=== PATIENT | male | born 1975 | race Caucasian/White ===

== ENCOUNTER → 2020-08-28 10:14 | Outpatient (BNVA) | payer BC, SELFPAY | PROVIDERS: PCP Internal Medicine; Visit Provider Urology ==

== ENCOUNTER → 2021-02-18 14:33 | Outpatient (BNVA) | payer BC, SELFPAY | PROVIDERS: PCP Internal Medicine; Visit Provider Urology ==

== ENCOUNTER → 2021-08-26 10:01 | Outpatient (BNVA) | payer BC, SELFPAY | PROVIDERS: PCP Internal Medicine; Visit Provider Urology ==

== ENCOUNTER → 2021-08-28 10:33 | Outpatient (BNVA) | payer BC, SELFPAY | PROVIDERS: PCP Internal Medicine; Visit Provider Urology ==

== ENCOUNTER → 2022-06-29 09:25 | Outpatient (BNVA) | payer BC, SELFPAY | PROVIDERS: PCP Internal Medicine; Visit Provider Urology | DX: N52.9 Male erectile dysfunction, unspecified (principal) ==

== ENCOUNTER 2023-01-21 13:57 | Outpatient (AMB) | payer BC, SELFPAY ==
--- NOTE | 2023-01-21 07:08 | A.OFFVIS_ITS ---
Intake Intake Visit Reasons: 6M CBC/PSA/Testo(set) Intake Note: Patient presents today for a follow-up on Erectile Dysfunction: Meds- Testosterone Cyp Allergies to Antibiotic- No Known Allergies Blood Thinner- None PSA Results- 0.9 ng/mL 12/2022 Hand Cigar Making Supervisor Required: No Accompanied by: Self / Same As Patient Allergies No Known Allergies Allergy (Verified 06/29/22 09:28) HPI HPI Comments History of Present Illness Details Alphonso is a 47-year-old male who presents today via tele-health visit for a follow up on Erectile Dysfunction. 01/21/2023? He has been followed up by Dr. Cai on 06/29/2022 for hypogonadism and erectile dysfunction. He is compliant with his medications at this time. He requests refill of his medications. He denies any other new urological issues at this time. PSA results reviewed?12/29/2022?0.9. Testosterone results reviewed ? 12/29/2022 ? 707. Plan: Will refill his medications. Follow up in 6-months with Dr. Cai. [facility] Medical History Erectile dysfunction Hypogonadism in male Testicular failure Surgical History History of surgery Family History (Updated 01/21/23 @ 14:00 by DEWEY Seymour) Father No problems noted. Mother No problems noted. Social History (Updated 01/21/23 @ 14:00 by DEWEY Seymour) Alcohol intake: current Alcohol intake frequency: does not drink Patient Tobacco Use Status: Never used Tobacco Review of Systems Const All systems reviewed & are unremarkable except as noted in HPI and below Reports no additional complaints Eyes Reports no additional complaints ENT Reports no additional complaints Card Denies dyspnea Resp Denies cough and Denies dyspnea GI Reports no additional complaints Musc Reports no additional complaints Skin/Breast Denies rash and Denies unusual bruising Neuro Reports no additional complaints Psych Reports no additional complaints Endo Reports no additional complaints Vj/Lymph Reports no additional complaints Aller/Immun Reports no additional complaints Assessment & Plan Assessment & Plan (1) Erectile dysfunction: Code(s): N52.9 - Male erectile dysfunction, unspecified (2) Hypogonadism in male: Code(s): E29.1 - Testicular hypofunction Plan Will refill his medications. Follow up in 6-months with Dr. Cai. Patient Instructions: The patient had an opportunity to ask questions regarding treatment plan. All questions were answered. Imaging, Laboratory studies and physical exam results were discussed and reviewed in detail. No major barriers to understanding were identified. The patient expressed understanding and agreement with the above treatment plan. The patient is aware they should contact our office by phone for worsening of their current condition or the appearance of new symptoms. Compliance is encouraged with any medications and followup testing that is ordered. It is a privilege to be allowed the opportunity to participate in the urologic care of your patient. If you have any questions or concerns regarding treatment for the above conditions please do not hesitate to contact me. The office telephone contact is [phone]. This note is constructed in part using voice recognition software. While every effort has been made to ensure accuracy department sales manager errors may have been included. Yours sincerely, Kirt El MD Coding Level of Care Code Est Pt Level 3 (47701)
== END 2023-01-21 16:45 | disposition home or self-care (01) ==
LOC: HO.HUSH 13:57
PROVIDERS: PCP Internal Medicine; Visit Provider Urology
DX: N52.9 Male erectile dysfunction, unspecified (principal); E29.1 Testicular hypofunction
CPT/HCPCS: 99213

== ENCOUNTER → 2023-01-21 13:57 | Outpatient (BNVA) | payer BC, SELFPAY | PROVIDERS: PCP Internal Medicine; Visit Provider Urology ==

== ENCOUNTER 2023-07-22 11:35 | Outpatient (AMB) | payer BC, SELFPAY ==
--- NOTE | 2023-07-22 11:39 | A.OFFVIS_ITS ---
Intake Intake Visit Reasons: 6 months Labs(SET) Intake Note: Patient is Present for Telephone Follow Up Urology Med: Testosterone Antibiotic Allergy: None Blood Thinner: None Allergies No Known Allergies Allergy (Verified 06/29/22 09:28) Medication List - Last Reconciled 07/22/23 by Daniel Cai MD insulin syringe-needle U-100 As directed two times per week meloxicam 15 mg PO DAILY testosterone cypionate inject 0.4 mls subcutaneous two times a week 28 days HPI HPI Comments History of Present Illness Details Alphonso Fuller is a very pleasant male. He is a patient of Dr Grimes. He is seen for the following urologic conditions - hypogonadism Telephone evaluation 15 minutes spent in discussion and docum entation Doximity adrienne Video Testosterone continues to maintain stability 465, PSA 0.9 Continue with testosterone 0.4 cc subcutaneous 2 times a week Hypogonadism: Prescriptions 0.4 cc subcutaneous 2 times a week Injection Day: Tue - Lab Work: Tuesday Initial symptoms include erectile dysfunction No decreased libido Yes change in mood/depression No in muscle size/strength Yes increased fatigue/malaise Yes increased abdominal fat No tender breasts/gynecomastia No hair loss No osteopenia No The onset of symptoms has been gradual, since late 2014 - trial of Clomid January 2016 with T response to 460 - not covered under insurance - trial of hCG - up to 1000u 3x a week - repeat T 169 05/19 - 05/19 - trial of T 50mcg 2x a week with hcg 250u 2x a week the day prior. Erectile status nocturnal erections occur and are comparable to sexual stimulation, erections are adequate for penetration, erections are maintained until ejaculation. Associate conditions include obstructive sleep apnea No CAD No obesity No stress - financial, family, employment No heavy alcohol or illicit drug use No other external testosterone use Laboratory results baseline, December 2015 - testosterone 208, , calculated bioavailable testosterone 122 January 2016 - trial of clomid restart - testosterone 425 calculated bioavailable testosterone 241 May 19 - T 164 , LH 3.04 Aug 2016 T 485 Feb 2017 757 - end, , PSA 1.1 06/19 T 1087 01/18 T 648, 12/20 T 494, PSA 0.9, HCT 50, 06/21 T 899 PSA 0.9 HCT 52, 12/21 T 585 PSA 0.9 HCT 51, 07/24 T 390 PSA 0.8 HCT 50, 02/21 T 566 PSA 0.7, Hct 49, 09/22 624 0.9 50, 06/24 T 902 0.9 52, 06/25 T 465 0.9 Current therapy includes injectable exogenous testosterone Diagnosis based on history and laboratory results Primary testicular failure, secondary to, external medications/substances. non responsive to hCG. Therapeutic plan continue current medication 0.40 ml 2x a week Risk, benefits and alternatives to therapy were discussed regarding the use and timing of prescribed medications. Pertinent side effects and interactions for medications were highlighted and adherence emphasized [facility] Medical History Erectile dysfunction Hypogonadism in male Testicular failure Surgical History History of surgery Family History (Updated 01/21/23 @ 14:00 by DEWEY Seymour) Father No problems noted. Mother No problems noted. Social History (Updated 01/21/23 @ 14:00 by DEWEY Seymour) Alcohol intake: current Alcohol intake frequency: does not drink Patient Tobacco Use Status: Never used Tobacco Review of Systems Const All systems reviewed & are unremarkable except as noted in HPI and below Reports no additional complaints Resp Reports no additional complaints GI Reports no additional complaints Reports as per HPI Musc Reports no additional complaints Physical Exam Telemedicine evaluation Appropriate responses Regular breathing rate and rhythm HEENT Head: Yes normal to inspection Ears: hearing grossly normal bilaterally Eyes General: appearance normal, both eyes and all related structures Neck Neck: Yes normal visual inspection Chest Chest palpation & inspection: normal inspection of the chest Resp Effort & Inspection: normal respiratory effort and able to speak in complete sentences Assessment & Plan Assessment & Plan (1) Erectile dysfunction: Code(s): N52.9 - Male erectile dysfunction, unspecified (2) Hypogonadism in male: Code(s): E29.1 - Testicular hypofunction Plan Six-month follow-up labs Orders: Orders Prostate Specific Antigen 6 Months E29.1 - Testicular hypofunction Testosterone, Total 6 Months E29.1 - Testicular hypofunction Complete Blood Count no Diff 6 Months E29.1 - Testicular hypofunction Medications: Refilled testosterone cypionate inject 0.4 mls subcutaneous two times a week 28 days 8 mL 5RF E29.1 - Testicular hypofunction Patient Instructions: Imaging studies, laboratory and physical exam results were discussed and reviewed in detail. No major barriers to patient understanding were identified. An opportunity to ask questions regarding the treatment plan was provided. All questions were answered. The patient expressed understanding and agreement with the above treatment plan. The patient is aware they should contact our office by phone for worsening of their current condition or the appearance of new urologic symptoms. Compliance is encouraged with any medications and followup testing that is ordered. It is a privilege to participate in the urologic care of your patient. If you have any questions or concerns regarding treatment for the above conditions, or other urologic issues, please do not hesitate to contact me. The office telephone contact is [phone]. This note is constructed using voice recognition software. While every effort has been made to ensure accuracy water purifier errors may have been included. Yours sincerely, Dr Daniel Cai MD, NO [facility] - Urology Providers of Expert, Compassionate Care for the Genitourinary System Telehealth Telehealth Location of provider rendering services: practice address Location of patient: address on file Patient Identification confirmed using: Name, : Yes Telehealth method: voice only Patient verbally consented to treatment: Yes Patient verbally consented to billing insurance company: Yes Patient informed of any privacy concerns related to visit: Yes Coding Level of Care Code Tele Est Pt Level 4 (97628) Diagnoses Erectile dysfunction N52.9 Hypogonadism in male E29.1
== END 2023-07-22 12:03 | disposition home or self-care (01) ==
LOC: HO.HUSH 11:35
PROVIDERS: PCP Internal Medicine; Visit Provider Urology
DX: N52.9 Male erectile dysfunction, unspecified (principal); E29.1 Testicular hypofunction
CPT/HCPCS: 99442

== ENCOUNTER → 2023-07-22 11:35 | Outpatient (BNVA) | payer BC, SELFPAY | PROVIDERS: PCP Internal Medicine; Visit Provider Urology ==

== ENCOUNTER 2024-01-24 11:09 | Outpatient (AMB) | payer BC, SELFPAY ==
--- NOTE | 2024-01-24 11:11 | A.OFFVIS_ITS ---
Intake Visit Reasons: 4M CBC/PSA/Testo(set) Intake Note: Patient is Present for Telephone Follow Up Labs Urology Med: Testosterone Antibiotic Allergy:None Blood Thinner: None Patient Registration Manager Required: No Allergies No Known Allergies Allergy (Verified 01/24/24 11:11) HPI Comments Details: Alphonso Fuller is a very pleasant male. He is a patient of Dr Grimes. He is seen for the following urologic conditions - hypogonadism Telephone evaluation 15 minutes spent in discussion and documentation [facility] ad[facility]ne Video Testosterone continues to maintain stability 466 Continue with testosterone 0.4 cc subcutaneous 2 times a week Six-month follow-up Hypogonadism: Prescriptions 0.4 cc subcutaneous 2 times a week Injection Day: Tue - Lab Work: Tuesday Initial symptoms include erectile dysfunction No decreased libido Yes change in mood/depression No in muscle size/strength Yes increased fatigue/malaise Yes increased abdominal fat No tender breasts/gynecomastia No hair loss No osteopenia No The onset of symptoms has been gradual, since late 2014 - trial of Clomid January 2016 with T response to 460 - not covered under insurance - trial of hCG - up to 1000u 3x a week - repeat T 169 05/19 - 05/19 - trial of T 50mcg 2x a week with hcg 250u 2x a week the day prior. Erectile status nocturnal erections occur and are comparable to sexual stimulation, erections are adequate for penetration, erections are maintained until ejaculation. Associate conditions include obstructive sleep apnea No CAD No obesity No stress - financial, family, employment No heavy alcohol or illicit drug use No other external testosterone use Laboratory results baseline, December 2015 - testosterone 208, , calculated bioavailable testosterone 122 January 2016 - trial of clomid restart - testosterone 425 calculated bioavailable testosterone 241 May 19 - T 164 , LH 3.04 Aug 2016 T 485 Feb 2017 757 - end, , PSA 1.1 06/19 T 1087 01/18 T 648, 12/20 T 494, PSA 0.9, HCT 50, 06/21 T 899 PSA 0.9 HCT 52, 12/21 T 585 PSA 0.9 HCT 51, 07/24 T 390 PSA 0.8 HCT 50, 02/21 T 566 PSA 0.7, Hct 49, 09/22 624 0.9 50, 06/24 T 902 0.9 52, 06/25 T 465 0.9, 7/24 T466 Current therapy includes injectable exogenous testosterone Diagnosis based on history and laboratory results Primary testicular failure, secondary to, external medications/substances. non responsive to hCG. Therapeutic plan continue current medication 0.40 ml 2x a week Risk, benefits and alternatives to therapy were discussed regarding the use and timing of prescribed medications. Pertinent side effects and interactions for medications were highlighted and adherence emphasized [facility] Medical History Erectile dysfunction Testicular failure Hypogonadism in male Surgical History History of surgery Family History Father No problems noted. Mother No problems noted. Social History Alcohol intake: current Alcohol intake frequency: does not drink Patient Tobacco Use Status: Never used Tobacco Review of Systems Const All systems reviewed & are unremarkable except as noted in HPI and below Reports no additional complaints Resp Reports no additional complaints GI Reports no additional complaints Reports as per HPI Musc Reports no additional complaints Physical Exam Telemedicine evaluation Appropriate responses Regular breathing rate and rhythm HEENT Head: Yes normal to inspection Ears: hearing grossly normal bilaterally Eyes General: appearance normal, both eyes and all related structures Neck Neck: Yes normal visual inspection Chest Chest palpation & inspection: normal inspection of the chest Resp Effort & Inspection: normal respiratory effort and able to speak in complete sentences Telehealth Telehealth Telehealth Platform: [facility] Location of provider rendering services: practice address Location of patient: address on file Patient Identification confirmed using: Name, : Yes Telehealth method: video Patient verbally consented to treatment: Yes Patient verbally consented to billing insurance company: Yes Patient informed of any privacy concerns related to visit: Yes Minutes spent on Phone/Video with Pt.: 15 Assessment & Plan Assessment & Plan (1) Erectile dysfunction: Code(s): N52.9 - Male erectile dysfunction, unspecified Category: Medical (2) Hypogonadism in male: Code(s): E29.1 - Testicular hypofunction Category: Medical Plan Six-month follow-up lab work Orders: Orders Complete Blood Count no Diff 6 Months E29.1 - Testicular hypofunction Prostate Specific Antigen 6 Months E29.1 - Testicular hypofunction Testosterone, Total 6 Months E29.1 - Testicular hypofunction Medications: Refilled testosterone cypionate inject 0.4 mls subcutaneous two times a week 28 days 8 mL 5RF E29.1 - Testicular hypofunction Patient Instructions: Imaging studies, laboratory and physical exam results were discussed and reviewed in detail. No major barriers to patient understanding were identified. An opportunity to ask questions regarding the treatment plan was provided. All questions were answered. The patient expressed understanding and agreement with the above treatment plan. The patient is aware they should contact our office by phone for worsening of their current condition or the appearance of new urologic symptoms. Compliance is encouraged with any medications and followup testing that is ordered. It is a privilege to participate in the urologic care of your patient. If you have any questions or concerns regarding treatment for the above conditions, or other urologic issues, please do not hesitate to contact me. The office telephone contact is [phone]. This note is constructed using voice recognition software. While every effort has been made to ensure accuracy harmonic analyst errors may have been included. Yours sincerely, Dr Daniel Cai MD, NO [facility] - Urology Providers of Expert, Compassionate Care for the Genitourinary System Coding Level of Care Code Tele Est Pt Level 3 (545[address]) Diagnoses Erectile dysfunction N52.9 Hypogonadism in male E29.1
--- OUTSIDE RECORDS SUMMARY | 2024-01-24 11:11 | XMS_ITS | Continuity of Care Document ---
Author Organization [facility] Address [address] [place] [address]- Care Team Providers Care Child Specialist Name Role Phone Tete BLANCHARD, Tomi Primary Care Physician [place] [facility] [place] - 09/21/[address] [address] Allergies, Adverse Reactions, Alerts No Known Allergies Immunizations Given and Recorded Vaccine Date Status Refusal Reason influenza virus vaccine, inactivated 04/22/23 Give n influenza virus vaccine, inactivated 05/05/22 Cesar rded influenza virus vaccine, inactivated 04/16/21 Cesar rded influenza virus vaccine, inactivated 04/01/20 Cesar rded influenza virus vaccine, inactivated 05/11/18 Cesar rded influenza virus vaccine, inactivated 04/23/17 Cesar rded influenza virus vaccine, inactivated 04/22/15 Cesar rded SARS-CoV-2 (COVID-19) mRNA BNT-162b2 vac 04/16/21 Recorded SARS-CoV-2 (COVID-19) mRNA BNT-162b2 vac 10/05/20 Recorded SARS-CoV-2 (COVID-19) mRNA BNT-162b2 vac 09/14/20 Recorded Influenza Virus Vaccine (oldterm) 04/02/20 Recorde d Medications amLODIPine 5 mg oral tablet 5 mg, 1, tablet, By Mouth, Daily, # 30 tablet, Refills 2, Tot. Refills 2, Maintenance, 08/23/23 11:10:00 EST, Route to Pharmacy Electronically, [facility]/pharmacy #[id number], Partial fill upon patient request if the prescription is for a schedule II opioid drug.... Start Date: 08/23/23 Status: Ordered gabapentin 300 mg oral capsule PLEASE SEE ATTACHED FOR DETAILED DIRECTIONS Start Date: 04/22/23 Status: Ordered oxyCODONE 5 mg oral tablet 5 mg, By Mouth, Every 6 hours, PRN, # 28 tablet, Refills 0, Tot. Refills 0, Soft Stop, Pain , Moderate, 07/26/23 10:58:00 EST, Route to Pharmacy Electronically, [facility], Partial fillupon patient request if the prescription is for a s... Start Date: 07/26/23 Stop Date: 08/03/23 Status: Ordered tadalafil 10 mg oral tablet 1 tablet = 10 mg, By Mouth, Daily, 1 hour before sexual activity, # 30 tablet, 3 Refills, Maintenance, 08/06/23 3:36:00 EST, Tablet, [facility]/pharmacy #[id number], Partial fill upon patient request if the prescription is for a schedule II opioid drug., 180, cm,... Start Date: 08/06/23 Status: Ordered Testosterone Cypionate 200 mg/mL intramuscular solution INJECT 0.4 MLS SUBCUTANEOUS TWO TIMES A WEEK Start Date: 04/22/23 Status: Ordered Problem List Condition Confirmation Course Effective Dates Status H ealth Status Informant Adjustment disorder with mixed emotional features Confirmed Active Anxiety Confirmed Active Cervical disc disorder at C6-C7 level with radiculopathy Confirmed Active Constipation Confirmed Active Male hypogonadism Confirmed Active Encounter for preventive care Confirmed Active Raised low density lipoprotein cholesterol Confirmed Active Tinea cruris Confirmed Active Social History Social History Type Response Smoking Status Never (less than 100 in lifetime) entered on: 04/07/23 Sex Patient Care team information Care Team Personnel Name: Tomi Epstein MD Position: [facility] Resident Member Role: PCP Address: Address: [address] [place] [address]- Care Team Related Persons Name: KEM JENKINS Address: home [address] [place] [address] Name: YANI JAY Address: home [address] [place] [address]
--- OUTSIDE RECORDS SUMMARY | 2024-01-24 11:11 | XMS_ITS | Continuity of Care Document ---
Author Organization [facility] Address [address] [place] [address]- Care Team Providers Care Record Center Coordinator Name Role Phone Tomi Epstein MD Primary Care Physician [phone] [place] [facility] [id number] Date(s): 07/21/23 - 07/28/23 [facility] [address] [place], [place] [address] Attending Physician: Santino Priest MD Referring Physician: Yuan Mckeon MD Allergies, Adverse Reactions, Alerts No Known Allergies [...] tablet, Refills 2, Tot. Refills 2, Maintenance, 04/22/23 12:06:00 EDT, Route to Pharmacy Electronically, [id number], Partial fill upon patientrequest if the prescription is for a schedule II opioid... Start Date: 04/22/23 Status: Ordered gabapentin 300 mg oral capsule PLEASE SEE ATTACHED FOR DETAILED DIRECTIONS Start Date: 04/22/23 Status: Ordered oxyCODONE 5 mg oral tablet 5 mg, By Mouth, Every 6 hours, PRN, # 28 tablet, Refills 0, Tot. Refills 0, Soft Stop, Pain , Moderate, 07/26/23 10:58:00 EST, Route to Pharmacy Electronically, [facility], Partial fillupon patient request if the prescription is for a s... Start Date: 07/26/23 Stop Date: 08/03/23 Status: Ordered tadalafil 10 mg oral tablet 1 tablet = 10 mg, By Mouth, Daily, 1 hour before sexual activity, # 30 tablet, 0 Refills, Maintenance, 04/22/23 9:43:00 EDT, Tablet, [facility], Partial fill upon patient request ifthe prescription is for a schedule II opioid drug., 177... Start Date: 04/22/23 Status: Ordered Testosterone Cypionate 200 mg/mL intramuscular [...] cholesterol Confirmed Active Tinea cruris Confirmed Active Vital Signs Most recent to oldest [Reference Range]: 1 Height 180 cm (07/21/23 2:30 PM) Weight 82 kg (07/21/23 2:30 PM) Oxygen Saturation [94-100 %] 98 % (07/21/23 2:30 PM) Pulse Rate [55-90 bpm] 83 bpm (07/21/23 2:30 PM) Body Mass Index [18.5-24.99 kg/m2] 25.31 kg/m2 *H* (07/21/23 2:30 PM) Blood Pressure [90-138/55-84 mm Hg] 138/ 87mm Hg (07/21/23 2:30 PM) Respiratory Rate [16-30 br/min] 18 br/mi n (07/21/23 2:30 PM) Blood pressure sites Arm, right (07/21/23 2:30 PM) Weight Obtained Via Standing scale (07/21/23 2:30 PM) Social History Social History Type Response Smoking Status Never (less than 100 in lifetime) entered on: 04/07/23 Sex Note * Romana Conner: PERFORM, SIGN, VERIFY Event Display: Patient Education/Instruction Authored Date: [id number] [facility] *[facility] Preop Clinical Summary Name DILLAN JENKINS Age 47 Years 1975 PCP Tomi Epstein MD PCP Visit Date 07/21/2023 14:26:00 Patient Instructions Today, you were seen by LAY Abarca. If you have any questions, you can reach??her at [phone] between 8.00am to 4.00pm. Thank you for??coming to your visit today with the preoperative??medical evaluation clinic.?? We wish you a fast recovery??from your surgery.? Your medication instructions are summarized below.?? If??you??are prescribed any new??medications, develop any any new medical problems, or??are hospitalized for any reason prior to your surgery; please??contact your us or your surgeon's office immediately.? Please stop all qihb-udt-ihujcom medications including ibuprofen (Advil, Motrin), naproxen (Aleve),??fish oil, multivitamins, turmeric and any herbal drugs 7-10 days prior to your procedure as thesecould increase your risk of bleeding complications.? If you require something for pain or a headache, it is safe to use acetaminophen (Tylenol) or any opiates prescribed to you. ??Examples of opiates include oxycodone, hydrocodone, and tramadol. Be aware that with surgery and narcotic use??there may be an increased risk of post operative constipation.?? To help with this increase your fiber intake, fluid intake, and??increase activity as soon as possible.?? You may also consider over the counter agents such as Colace, Dulcolax, Senna and/or Miralax. The morning of surgery, take the following medications with a sip of water: Amlodipine?? Thank you, Romana Schmid, PAC Additional Instructions: Scheduled Appointments?? Future Appointments ?[facility]??Inpt??OR ?Phone:??--?Fax:??-- ?Appt. Date:??07/26/2023?7:30 AM ?Scheduled Provider:??[facility] OR ?[facility]??Endoscopy??&??Special??Procedures ?Phone:??--?Fax:??-- ?Appt. Date:??10/06/2023?8:30 AM ?Scheduled Provider:??Juanita House DO Tri Follow-Up Instructions ?? Allergy Info:?? NKA Medications Given This Visit Vital Signs Height 180 cm Weight 82 kg BMI 25.31 kg/m2 Blood Pressure 138 mm Hg/87 mm Hg Temperature Pulse Rate 83 bpm Respiratory Rate 18 br/min 02 Sat Mode of Delivery 98 %/ You can now view a summary of your hospital visit from the comfort of your home through a free online portal called [employer]. [employer] is a website that allows you to securely view your medical information including discharge summary, medications and follow-up visits. ??You can alsosend a secure electronic message to your doctor???s office to request appointments, renew medications or just ask a question. You can enroll at [email or web address] or register during your next office visit. Disclaimer:?? The information provided is of a general nature and is intended to be used in conjunction with the recommendations and advice of your health care practitioner. ??Every effort has been made to ensure that the information provided is accurate and complete at the time it is provided to you however, as your needs change, or, as new ??information becomes available, different or additional instructions may be required. If you have questions, please consult with your primary care provider or pharmacist, as appropriate. ??This information is not intended to serve as substitution for assessment and evaluation by a qualified health care provider. If you do not have a primary care provider, you may find a [facility] provider by calling [facility] [employer] at [phone]. [facility], in keeping with [facility] guidance, no longer requires face masks for staff, patientsor visitors in most situations. Similar to time spent indoors at other locations, there is the chance that you were exposed to respiratory viruses during your time with us (such as flu or COVID-19).? If you develop symptoms concerning for a viral respiratory infection, please seek testing (and treatment if indicated) from your medical provider or home test kit. For information about the plan of care including goals and instructions for your diagnosis, please see the patient education orders section of this document. Patient Education Materials?? The content of this educational material or handout may have been modified, supplemented, or adapted from its original content and format to support your individualized medical care. Patient Care team information Care Team Personnel Name: Tomi Epstein MD Position: [facility] Resident Member Role: PCP Address: Address: [address] [place] [address]- Care Team Related Persons Name: KEM JENKINS Address: [address] [place] [address] Name: YANI JAY Address: [address] [place] [address]
--- OUTSIDE RECORDS SUMMARY | 2024-01-24 11:11 | XMS_ITS | Continuity of Care Document ---
Author Organization [facility] Address [address] [place] [address]- Care Team Providers Care Technical Producer Name Role Phone Tete BLANCHARD, Tomi Primary Care Physician En[place] [facility] [place] [id number] Date(s): 04/22/23 - 05/22/[address] [address]- Attending Physician: Shonda Xie Admitting Physician: AdmShonda cabrales Referring Physician: [id number] Allergies, Adverse Reactions, Alerts No Known Allergies [...] DETAILED DIRECTIONS Start Date: 04/22/23 Status: Ordered Meloxicam Daily, 0 Refills, Maintenance, 03/23/23 12:47:00 EDT, Partial fill upon patient request if the prescription is for a schedule II opioid drug. Start Date: 03/23/23 Status: Ordered tadalafil 10 mg oral tablet [...] List Condition Confirmation Course Effective Dates Status Health St atus Informant Adjustment disorder with mixed emotional features Confirmed Active Anxiety Confirmed Active Constipation Confirmed Active Male hypogonadism Confirmed Active Encounter for preventive care Confirmed Active Raised low density lipoprotein cholesterol Confirmed Active Tinea cruris Confirmed Active Social History Social History Type Response Smoking Status Never (less than 100 in lifetime) entered on: 04/07/23 Sex Patient Care team information Care Team Personnel Name: Tomi Epstein MD Position: [facility] Resident Member Role: PCP Address: Address: [address] [place] [address]- Care Team Related Persons Name: KEM JENKINS Address: home [address] [place] [address] Name: YANI JAY Address: [address] [place] [address]
--- OUTSIDE RECORDS SUMMARY | 2024-01-24 11:11 | XMS_ITS | Continuity of Care Document ---
Author Organization [facility] Address [address] [place] [address]- Care Team Providers Care Head Of Business Development Name Role Phone Tomi Epstein MD Primary Care Physician [place] [facility] 07/21/23 - 08/20/23 [facility] [address] [place], [place] [address] Attending Physician: Admtr, [id number] Admitting Physician: Admtr, Ar8 Referring Physician: Admtr, Ar8 Allergies, Adverse Reactions, Alerts No Known Allergies [...] 07/26/23 10:58:00 EST, Route to Pharmacy Electronically, [facility], Partial fillupon patient request if the prescription is for a s... Start Date: 07/26/23 Stop Date: 08/03/23 Status: Ordered tadalafil 10 mg oral tablet 1 tablet = 10 mg, By Mouth, Daily, 1 hour before sexual activity, # 30 tablet, 3 Refills, Maintenance, 08/06/23 3:36:00 EST, Tablet, [facility]/pharmacy #[id number], Partial fill upon patient request if [...] Team Personnel Name: Tomi Epstein MD Position: [facility] Resident Member Role: PCP Address: Address: [address] [place] [address]- Care Team Related Persons Name: KEM JENKINS Address: home [address] [place] [address] Name: YANI JAY Address: home [address] [place] [address]
--- OUTSIDE RECORDS SUMMARY | 2024-01-24 11:11 | XMS_ITS | Continuity of Care Document ---
Author Organization [facility] Address [address] [place] [address]- Care Team Providers Care Grain Operations Manager Name Role Phone Tete BLANCHARD, Tomi Primary Care Physician Encounter [facility] [id number] Date(s): 09/30/23 - 10/30/23 [facility] [address] [place] [address]- [place] Allergies, Adverse Reactions, Alerts No Known Allergies [...] 08/23/23 11:10:00 EST, Route to Pharmacy Electronically, [facility]/pharmacy #[id number], Partial fill upon patient request if the [...] 07/26/23 10:58:00 EST, Route to Pharmacy Electronically, [facility], Partial fillupon patient request if the prescription is for a s... Start Date: 07/26/23 Stop Date: 08/03/23 Status: Ordered PEG-3350 with Electrolytes (Eqv-GoLYTELY) oral powder for reconstitution 240 mL, By Mouth, Every 15 minutes, Split prep method. 1/2 gallon evening prior to colonscopy and 1/2 gallon 6h prior to start of colonoscopy, # 4,000 mL, 0 Refills, Maintenance, 09/27/23 10:54:00 EDT, [facility]/pharmacy #[id number], Colonosopy Date: 09/29/23, 24... Start Date: 09/27/23 Status: Ordered tadalafil 10 mg oral tablet 1 tablet = 10 mg, By Mouth, Daily, 1 hour before sexual activity, # 30 tablet, 3 Refills, Maintenance, 08/06/23 3:36:00 EST, Tablet, [facility]/pharmacy #[id number], Partial fill upon patient request if [...] Active Encounter for preventive care Confirmed Active Last colonoscopy 09/2023; next due 09/2030 Confirmed Active Raised low density lipoprotein cholesterol Confirmed Active Tinea cruris Confirmed Active Social History Social History Type Response Smoking Status Never (less than 100 in lifetime) entered on: 04/07/23 Sex Patient Care team information Care Team Personnel Name: Tomi Epstein MD Position: S Resident Member Role: PCP Address: Address: [address] [place] [address] Care Team Related Persons Name: KEM JENKINS Address: home [address] [place] [address] Name: YANI JAY Address: home [address] [place] [address]
--- OUTSIDE RECORDS SUMMARY | 2024-01-24 11:11 | XMS_ITS | Continuity of Care Document ---
Author Organization [facility] Address [address] [place] [address]- Care Team Providers Care College Sports Assistant Name Role Phone Tete BLANCHARD, Tomi Primary Care Physician Encounter [facility] Date(s): 07/27/23 - 08/26/[address] [id number] Allergies, Adverse Reactions, Alerts No Known Allergies [...] 08/23/23 11:10:00 EST, Route to Pharmacy Electronically, [facility]/pharmacy #[id number], Partial fill upon patient request if the [...] 07/26/23 10:58:00 EST, Route to Pharmacy Electronically, [facility], Partial fillupon patient request if the prescription is for a s... Start Date: 07/26/23 Stop Date: 08/03/23 Status: Ordered tadalafil 10 mg oral tablet 1 tablet = 10 mg, By Mouth, Daily, 1 hour before sexual activity, # 30 tablet, 3 Refills, Maintenance, 08/06/23 3:36:00 EST, Tablet, [facility]/pharmacy #[id number], Partial fill upon patient request [...] Team Personnel Name: Tomi Epstein MD Position: [facility] Resident Member Role: PCP Address: Address: [address] [place] [id number]- Care Team Related Persons Name: KEM JENKINS Address: home [address] [place] [address] Name: YANI JAY Address: home [address] [place] [address]
--- OUTSIDE RECORDS SUMMARY | 2024-01-24 11:11 | XMS_ITS | Continuity of Care Document ---
Author Organization [facility] ter Address [address] [place] [address]- Care Team Providers Care Rubber Cutter Name Role Phone Cornelio BLANCHARD, Marc Duval Primary Care Physician Encounter [facility] Date(s): 06/15/19 - 06/15/[address] [address]- [facility] Attending Physician: Daniel Cai MD Allergies, Adverse Reactions, Alerts Substance Reaction Severity Status NKA Active Medications meclizine 25 mg oral tablet 1 tablet = 25 mg, By Mouth, 3 times a day, PRN for dizziness, # 30 tablet, 0 Refills, Acute 06/16/19 12:50:00 EST, 06/08/19 12:45:52 EST, Tablet, 178, cm, 06/08/19 11:55:41 EST, Height, 89, kg, 06/08/19 11:55:41 EST, Dry Weight Start Date: 06/08/19 Stop Date: 06/16/19 Status: Ordered tadalafil 10 mg oral tablet 1 tablet = 10 mg, By Mouth, Daily, 1 hour before sexual activity, # 15 tablet, 0 Refills, Maintenance, 04/10/19 10:03:04 EDT, Tablet Start Date: 04/10/19 Status: Ordered Zofran ODT 4 mg oral tablet, disintegrating 1 tablet = 4 mg, By Mouth, 3 times a day, PRN Nausea, # 12 tablet, 0 Refills, Maintenance, 06/08/1912:45:35 EST, 178, cm, 06/08/19 11:55:41 EST, Height, 89, kg, 06/08/19 11:55:41 EST, Dry Weight Start Date: 06/08/19 Status: Ordered Problem List Condition Effective Dates Status Health Status Inform ant Adjustment disorder with mix ed emotional features(Confirmed) Active Anxiety(Confirmed) Active Constipation(Confirmed) Active Male hypogonadism(Confirmed) Active Encounter for preventive care(Confirmed) Active Raised low density lipoprote in cholesterol(Confirmed) Active Tinea cruris(Confirmed) Active
--- OUTSIDE RECORDS SUMMARY | 2024-01-24 11:11 | XMS_ITS | Continuity of Care Document ---
Author Organization [facility] Address [address] [place] [address]- Care Team Providers Care Dry Cleaning Supervisor Name Role Phone Cornelio BLANCHARD, Marc Duval Primary Care Physician Encounter [facility] Date(s): 03/13/20 - 04/12/20 [facility] [address] [place] [address]- [facility] Attending Physician: Shonda Xie Admitting Physician: AdmShonda cabrales Referring Physician: AdmtrShonda Allergies, Adverse Reactions, Alerts Substance Reaction Severity Status NKA Active Immunizations Given and Recorded Vaccine Date Status Refusal Reason Influenza Virus Vaccine (oldterm) 04/02/20 Recorde d influenza virus vaccine, inactivated 04/01/20 Cesar rded Medications Readi-Cat 2 2.1% oral suspension See Instructions, DRINK 1 BOTTLE NIGHT BEFORE TEST AT 8:00 PM DRINK 2ND BOTTLE 1.5 HOURS PRIOR TO XRY, # 2 each, 0 Refills, Maintenance, 03/18/20 15:08:00 EDT, [facility] #[id number], DRINK 1 BOTTLE NIGHT BEFORE TEST AT 8:00 PM; DRINK 2ND BOTTLE 1.5 HOUR... Start Date: 03/18/20 Status: Ordered tadalafil 5 mg oral tablet 1 tablet, By Mouth, Daily, BEFORE NEEDED., # 6 tablet, 0 Refills, Maintenance, 03/14/20 13:31:00 EDT, [id number], 182, cm, 03/13/20 13:05:00 EDT, Height, 87, kg, 03/07/20 15:36:00 EDT, Dry Weight Start Date: 03/14/20 Stop Date: 03/14/20 Status: Ordered Testosterone Every week, 0 Refills, Maintenance, 08/18/19 10:38:00 EST Start Date: 08/18/19 Status: Ordered Problem List Condition Effective Dates Status Health Status Inform ant Adjustment disorder with mix ed emotional features(Confirmed) Active Anxiety(Confirmed) Active Constipation(Confirmed) Active Male hypogonadism(Confirmed) Active Encounter for preventive care(Confirmed) Active Raised low density lipoprote in cholesterol(Confirmed) Active Tinea cruris(Confirmed) Active
--- OUTSIDE RECORDS SUMMARY | 2024-01-24 11:11 | XMS_ITS | Continuity of Care Document ---
Author Organization [facility] Address [address] [place] [address]- Care Team Providers Care Electronics Manufacturer Name Role Phone Tete BLANCHARD, Tomi Primary Care Physician [place] [facility] [place]/04[place]23 - 09/03/[address] [id number] Allergies, Adverse Reactions, Alerts No Known [...] 08/23/23 11:10:00 EST, Route to Pharmacy Electronically, [facility]/pharmacy #[id number], Partial fill upon patient request if the [...] 07/26/23 10:58:00 EST, Route to Pharmacy Electronically, [facility], Partial fillupon patient request if the prescription is for a s... Start Date: 07/26/23 Stop Date: 08/03/23 Status: Ordered tadalafil 10 mg oral tablet 1 tablet = 10 mg, By Mouth, Daily, 1 hour before sexual activity, # 30 tablet, 3 Refills, Maintenance, 08/06/23 3:36:00 EST, Tablet, [facility]/pharmacy #[id number], Partial fill upon patient request [...] Team Personnel Name: Tomi Epstein MD Position: [facility] Resident Member Role: PCP Address: Address: [address] [place] [address]- Care Team Related Persons Name: KEM JENKINS Address: [address] [place] [address] Name: YANI JAY Address: [address] [place] [address]
--- OUTSIDE RECORDS SUMMARY | 2024-01-24 11:11 | XMS_ITS | Continuity of Care Document ---
Author Organization [facility] Address [address] [place] [id number]- Care Team Providers Care Community Outreach Coordinator Name Role Phone Tomi Epstein MD Primary Care Physician [place] [facility] [place]/26/23 - 07/26/[address] [address] Discharge Disposition: A-D/C Home Attending Physician: Yuan Mckeon MD Admitting Physician: Yuan Mckeon MD Referring Physician: Yuan Mckeon MD Allergies, [...] Date: 07/26/23 Stop Date: 08/03/23 Status: Ordered Oxycodone 5mg Oral Tablet (PACU ONLY) 5 mg, Tablet, By Mouth, Once, in PACU ONLY, PRN for Pain , Moderate, Routine, 07/26/23 8:28:00 EST Start Date: 07/26/23 Stop Date: 07/26/23 Status: Completed tadalafil 10 mg oral tablet 1 tablet [...] cholesterol Confirmed Active Tinea cruris Confirmed Active Results Radiology Reports * Exam Date Time Procedure Performing Provider Status 07/26/23 4:37 PM Cervical Spine 3 Views or Less [place] (Verified) Notes: (Cervical Spine 3 Views or Less) Reason For Exam: Postop RESULT: Cervical Spine 3 Views or Less Cervical Spine 3 Views or Less Reason: Postop; Clinical Question(s): Position Fixation COMPARISON: Correlation with intraoperative imaging from 07/26/2023.. FINDINGS: No bone lesions or fractures. Normal odontoid and C1/2 relationship. There are degenerative changes with loss of intervertebral disc height at C5-C6. There is an intervertebral disc prosthetic at C6-C7 which appears well aligned. Prevertebral soft tissue fullness probably reflects postsurgical change. IMPRESSION: Postsurgical changes at C6-C7. Degenerative changes at C5-C6. WSN: [id number] Ordering Physician: Virginia Pace Dictated By: Ileana Landis MD Dictated Date/Time: 07/26/23 4:48 pm Reviewed By: Ileana Landis MD Signed By: Ileana Landis MD Signed Date/Time: 07/26/23 4:48 pm Transcribed By: TAMELA Transcribed Date/Time: 07/26/23 4:45 pm * Exam Date Time Procedure Performing Provider Status 07/26/23 10:15 AM C-Arm > 1 Hour Inga Taylor (Verified) Notes: (C-Arm > 1 Hour) Reason For Exam: CSPINE 6-7 RESULT: C-Arm > 1 Hour Cervical Spine 3 Views or Less, C-Arm > 1 Hour INDICATION: Reason: CSPINE 6-7 COMPARISONS: None TECHNIQUE: Fluoroscopy support was provided. There was no radiologist in attendance. FLUOROSCOPY TIME: 1 minute 01 second EXPOSURE: 19.29 mGy (reference air kerma) TECHNOLOGIST TIME: 2 hours 20 minutes FINDINGS: Intraoperative fluoroscopic images obtained during intervertebral disc spacer placement at C6-C7. IMPRESSION: See above. WSN: [id number] Ordering Physician: Yuan Mckeon Dictated By: Joce Hernandez MD Dictated Date/Time: 07/26/23 1:18 pm Reviewed By: Joce Hernandez MD Signed By: Joce Hernandez MD Signed Date/Time: 07/26/23 1:18 pm Transcribed By: TAMELA Transcribed Date/Time: 07/26/23 1:17 pm * Exam Date Time Procedure Performing Provider Status 07/26/23 10:15 AM Cervical Spine 3 Views or Less Gavin Ontiveros; Jany (Verified) Notes: (Cervical Spine 3 Views or Less) Reason For Exam: CSPINE 6-7 RESULT: Cervical Spine 3 Views or Less Cervical Spine 3 Views or Less, C-Arm > 1 Hour INDICATION: Reason: CSPINE 6-7 COMPARISONS: None TECHNIQUE: Fluoroscopy support was provided. There was no radiologist in attendance. FLUOROSCOPY TIME: 1 minute 01 second EXPOSURE: 19.29 mGy (reference air kerma) TECHNOLOGIST TIME: 2 hours 20 minutes FINDINGS: Intraoperative fluoroscopic images obtained during intervertebral disc spacer placement at C6-C7. IMPRESSION: See above. WSN: [id number] Ordering Physician: Yuan Mckeon Dictated By: Joce Hernandez MD Dictated Date/Time: 07/26/23 1:18 pm Reviewed By: Joce Hernandez MD Signed By: Joce Hernandez MD Signed Date/Time: 07/26/23 1:18 pm Transcribed By: TAMELA Transcribed Date/Time: 07/26/23 1:17 pm Vital Signs Most recent to oldest [Reference Range]: 1 2 3 Height 180 cm (07/26/23 7:23 AM) 180 cm (07/22/23 5:22 PM) Weight 82 kg (07/26/23 7:23 AM) 82 kg (07/22/23 5:22 PM) Oxygen Saturation [94-100 %] 95 % (07/26/23 2:30 PM) 94 % (07/26/23 2:00 PM) 95 % (07/26/23 1:30 PM) Pulse Rate [55-90 bpm] 77 bpm (07/26/23 7:23 AM) Body Mass Index [18.5-24.99 kg/m2] 25.31 kg/m2 *H* (07/26/23 7:23 AM) 25.31 kg/m2 *H* (07/22/23 5:22 PM) Blood Pressure [90-138/55-84 mm Hg] 133/85mm Hg (07/26/23 2:00 PM) 137/99mm Hg (07/26/23 1:30 PM) 129/88mm Hg (07/26/23 1:15 PM) Respiratory Rate [16-30 br/min] 21 br/min (07/26/23 2:30 PM) 14 br/min *L* (07/26/23 2:00 PM) 17 br/min (07/26/23 1:37 PM) Temperature [96.8-100.4 DegF] 97.9 DegF (07/26/23 2:45 PM) 97.7 DegF (07/26/23 1:15 PM) 97.0 DegF (07/26/23 11:00 AM) Liters per Minute 6 L/min (07/26/23 11:00 AM) Mode of Delivery (Oxygen) Room air (07/26/23 1:15 PM) Room air (07/26/23 11:15 AM) Simple face mask (07/26/23 11:00 AM) Blood pressure sites Arm, right (07/26/23 11:00 AM) Arm, right (07/26/23 7:23 AM) Temperature Route Temporal (07/26/23 2:45 PM) Temporal (07/26/23 1:15 PM) Temporal (07/26/23 11:00 AM) Dry Weight 84 kg (07/26/23 7:23 AM) 82 kg (07/22/23 5:22 PM) Dry Weight Obtained Via Standing scale (07/26/23 7:23 AM) Social History Social History Type Response Smoking Status Never (less than 100 in lifetime) entered on: 04/07/23 Sex Note * Isela Regalado RN: PERFORM Event Display: Discharge/Transfer Note Hospital Authored Date: [id number] Nursing Discharge Note Entered On: 07/26/2023 16:16 EST Performed On: 07/26/2023 16:16 EST by Isela Regalado RN Nursing Discharge Note 2 Discharge Time : 07/26/2023 16:12 EST Discharge Level of Care at Discharge : Home/Longterm/Foster Care Patient Left Unit Via : Wheelchair Patient Accompanied Off Unit with : Responsible adult DC Instructions Provided & Signed by Pt : Yes Patient Understands D/C Instructions : Yes Patient Instructions Discharge Signed : Yes Did Pt have Specialty Bed or Wound Vac : No Isela Regalado RN - 07/26/2023 16:16 EST * Isela Regalado RN: PERFORM, MODIFY, MODIFY, MODIFY Event Display: Patient Education/Instruction Authored Date: [id number] Inpatient Adult Discharge Instructions [address] [address] Name: DILLAN JENKINS : 1975 Visit: 07/26/2023 05:51:00 Current Date: 07/26/2023 15:41 Account: [id number] Inpatient Adult Discharge Instructions We would like to thank you for allowing us to assist you with your healthcare needs. The following includes patient education materials and information regarding your injury/illness. Our entire staffstrives to provide an excellent experience for our patients and their families. PLEASE ENSURE YOU FOLLOW-UP PER THE INSTRUCTIONS BELOW! ?? YOUR OPINION IS IMPORTANT TO US! Please complete the survey you may receive by mail or email. Your feedback will be used to make improvements to the healthcare experiences of our patients and their families. Surveys are administered by [employer]. ?? If further treatment with your primary care physician or another doctor is recommended, it is important for you to keep the appointment. Call your primary care physician or return to the Emergency Department immediately if your condition worsens, fails to improve, or new symptoms develop. If you need to find a doctor, you can call [facility] [employer] for a referral at [phone] or toll free at [phone]) or log in to [email or web address].. ?? [facility], in keeping with [facility] guidance, no longer requires face masks for staff, patientsor visitors in most situations. Similiar to time spent indoors at other locations, there is the chance that you were exposed to repiratory viruses during your time with us (such as flu or COVID-19). If you develop symptoms concerning for a viral respiratory infection, please seek testing (and treatment if indicated) from your medical provider or home test kit. ?? You can view and manage your care through the patient portal or by using a health care adrienne of your choosing. [employer] is a website that allows you to securely view your medical information including your hospital discharge summary, office visit summaries, medications and follow-up visits. You can also request appointments, renew medications, and request access to your medical information using a health care adrienne of your choosing, or just ask a question. You can enroll at [email or web address] or register during your next office visit. You have been discharged from [facility], Patient Care Unit: PANU. If you have any questions regarding these instructions after you leave, please call us and we will be happy to assist you. [facility] Your Care Team Attending Physician MikeYuan mccann MD Discharging Providers Yuan Mckeon MD Reason for Admission RIGHT RADICULOPATHY 23 HR Your Diagnosis Cervical disc disorder at C6-C7 level with radiculopathy Tests Performed Below is a partial list of the tests performed during your hospitalization. You may have had other tests and procedures not included in this list. Please discuss all test results with your provider. Cervical Spine 3 Views or Less?-- Results Pending -- XR C-Arm > 1 Hour XR Cervical Spine 3 Views or Less You will be contacted within 72 hours with your results. Primary Care Provider Tomi Epstein MD Advance Directive Health Care Proxy on File No Discharge Vitals Temperature: 97.7 DegF Height: 180 cm Pulse Rate: 77 bpm Weight: 82 kg Respiratory Rate: 17 br/min Body Mass Index:??25.31 kg/m2??High Systolic Blood Pressure: 137 mm Hg Body surface area: 2.02 Diastolic Blood Pressure:??99 mm Hg??High ?? Oxygen Saturation: 95 % ?? Studies Pending All tests and labs ordered during this hospital stay have been completed unless listed below. Please discuss all pending results with your provider listed above in these instructions. ?? Cervical Spine 3 Views or Less What to do next Instructions From Your Doctor Discharge Orders Instructions from your Care Team Keep your dressing clean and dry, you may remove the dressing on post op day 3 (07/29).?? C-collar to remain in place except when showering and eating until your follow- up appointment. Scheduled Follow-Up Appointments 2023 8:30 AM EDT ?? Where: [facility] Endoscopy & Special Procedures Status: Pending You Need to Schedule the Following Appointments Please call Dr. Mckeon's office to schedule a follow-up appointment in 2 weeks.?? Call his officenumber if you have any questions/concerns before your upcoming appointment. Office # [phone] Discharge Medications DILLAN JENKINS :1975 Visit Date:07/26/2023 Medications: Please continue your medications until treatment is completed or stopped by your provider. Medications not listed below should be discontinued. Discuss any questions related to medications with your provider. What How Much When Instructions Next Dose New Oxycodone (oxyCODONE 5 mg oral tablet) 5 Milligram Oral Every 6 hours as needed for Pain , Moderate Pickup at [facility] 3 07/26 7:30PM Unchanged Amlodipine (amLODIPine 5 mg oral tablet) 1 tab(s) Oral Daily resume home regimen Unchanged Gabapentin (gabapentin 300 mg oral capsule) PLEASE SEE ATTACHED FOR DETAILED DIRECTIONS ?? resume home regimen Unchanged tadalafil (tadalafil 10 mg oral tablet) 1 tab(s) Oral Daily 1 hour before sexual activity ?? resume home regimen Unchanged Testosterone (Testosterone Cypionate 200 mg/ mL intramuscular solution) INJECT 0.4 MLS SUBCUTANEOUS TWO TIMES A WEEK ?? resume home regimen Pharmacy Information [facility] 3: [address], [place] [id number] [phone] Test Results Below is a partial list of the most recent Laboratory test results done prior to this discharge. You may have had other tests and procedures not included in this list. Please discuss all test resultswith your provider. Allergies (NKA means No Known Allergies) NKA Problems Active Problems??(8) Adjustment disorder with mixed emotional features?? Anxiety?? Cervical disc disorder at C6-C7 level with radiculopathy?? Constipation?? Encounter for preventive care?? Male hypogonadism?? Raised low density lipoprotein cholesterol?? Tinea cruris?? Education Materials Below is the list of Educational Leaflet Providered with your Discharge Instructions. Valuables and Belongings I fully understand and agree that [facility] accepts no responsibility for all my personal property including clothing, toilet articles, radios, jewelry, dentures, hearing aids, rings, money, or any other property that is in my possession or is brought to me after admission. I understand certain valuables may be placed in a hospital safe for a short period of time. I understand that the hospital is not liable for loss or damage due to accident, fire, or other natural occurrence while said property is in the safe. I accept full responsibility for any personal property that I keep with me, and will not hold the hospital responsible in case of loss or disappearance. I acknowledge that i have been encouraged to send valuables and belongings home. ?? Review of Valuable and Belonging List: With patient Date for Pt to Sign Valuables/Belongings: 07/26/23 07:49:00 ?? Valuables & Belongings ?? Clothes Electronic devices Jewelry Monetary Items Personal devices Miscellaneous Medications (Valuables) Valuables at Bedside Pants, Shirt, Shoes, Undergarments ? Valuables Sent Home ? Valuables Sent to Security ? Other Discharge Information ? Pulmonary Rehab Status?? Pulmonary Rehab Discharge Status?? Respiratory Rate: 17 br/min ? Common Emergency Awareness Tips IS IT A STROKE? Act FAST and Check for these signs: FACE Does the face look uneven? ARM Does one arm drift down? SPEECH Does their speech sound strange? TIME Call at any sign of stroke ?? Heart Attack Signs Chest discomfort: Most heart attacks involve discomfort in the center of the chest and lasts more than a few minutes, or goes away and comes back. It can feel like uncomfortable pressure, squeezing, fullness or pain. Discomfort in upper body: Symptoms can include pain or discomfort in one or both arms, back, neck, jaw or stomach. Shortness of breath: With or without discomfort. Other signs: Breaking out in a cold sweat, nausea, or lightheaded. Remember, MINUTES DO MATTER. If you experience any of these heart attack warning signs, call to get immediate medical attention! ?? Smoking can increase your chances of developing chronic health problems and can cause harmful effects to other family members in your house. If you smoke, you are strongly encouraged to quit. Please call [facility] [employer] Link at [phone] or [phone] ([phone]) or log in to [email or web address] for referrals to smoking cessation programs. ?? 767 Suicide & Crisis Lifeline is available 24/01 if you or someone you know needs to find a reason to keep living. By calling 217 you'll be connected to a skilled, trained counselor at a crisis center in your area. INPATIENT DISCHARGE INSTRUCTIONS SIGNATURE PAGE DILLAN JENKINS Location:[facility] Registration Date and Time:07/26/2023 05:51 EST Primary Care Physician: Tete BLANCHARD, Tomi, Attending Physician: Yuan Mckeon MD, I DILLAN JENKINS, have received the above patient education materials/instructions and have verbalized understanding. If ambulance or transport services are being used I further acknowledge being given a choice of service. ?? If you need to contact me, please call me at this number: . Patient/Rn Case Mgr Name: Patient/Rn Case Mgr Signature: Relationship to Patient: Witness Name/Signature: Date: * Isela Regalado RN: PERFORM, SIGN, VERIFY Event Display: Patient Education Handout Authored Date: * Isela Regalado RN: PERFORM Event Display: Patient Education Leaflets Authored Date: Orthopedics ??? ACDF ?? 224 Cervical Spine Discharge Instructions Diet ??? Resume your usual diet at home unless otherwise instructed. You may prefer to eat soft foods for the first few days postoperatively. Medications ??? Continue all home medications unless instructed otherwise by your physician. You may be discharged home with prescriptions for new medications which will be explained to you at time of discharge. Bowel Regimen ??? Narcotic pain medications commonly cause constipation. You should use an over thecounter stool softener or mild laxative while you are taking narcotic medications. If you do not have a bowel movement with 3 days of your surgery, you should begin the bowel regime. Activity ??? Avoid bending or twisting your neck, stretching your arms above the shoulders, or extending your arms too far forward. Minimize full flights of stairs if uncomfortable. If you have been prescribed a neck brace or collar, you must wear it at all times unless specifically stated by your physician. You may shower. If you are prescribed a neck brace or collar you may not remove it when showering. Keep your dressing clean and dry by covering it while showering. Avoid tub baths, hot tubs, or swimming until cleared by your physician. You may experience difficulty sleeping at times, especially in your early recovery. You may find itcomfortable to use pillows to support your neck and legs. It is best to get in and out of bed from a side-lying position. Avoid housework after surgery until cleared by your physician. Restricting some activities are necessary to prevent injury to the healing tissues. Your physician will discuss with you when you can increase your activity level. You should speak with your physician about when to return to work. Remember ??? No lifting over 10-15 pounds ??? No bending, twisting, or stretching ??? No driving while taking narcotic pain medication Incision and Wound Care ??? Keep your dressing clean and dry at all times. Should your dressing become wet or soiled, remove it and place a sterile dressing on your wound. Call your physician if you experience ??? Temperature greater then 101.5 ??? Redness, swelling, or drainage from your incision site ??? Any increased weakness, numbness, tingling, or pain not experienced prior to your surgery ??? Any newdifficulty speaking or swallowing Contact your primary care physician for any concerns not related to your surgery. ? * Isela Regalado RN: PERFORM Event Display: Patient Education Leaflets Authored Date: [id number] Surgery Medical Daystay Surgical Overnight Discharge Instructions ?? 295 Medical Daystay/Surgical Overnight Discharge Instructions ? Since your coordination and judgment may be altered by medication and/or anesthesia, a responsible adult must drive you home from the hospital. ? If you have received medication for pain or sedation while under our care, you should not drive, operate machinery, drink alcohol, or sign any legal documents for 24 hours.?? You should have someone with you at home tonight. ? Remain at home the day of discharge.?? You may be up and about unless otherwise instructed by your physician. ? You may resume your daily prescription medication schedule.?? Any depressant medication should be avoided for 24 hours unless otherwise instructed by your surgeon or anesthesiologist. ? Call your physician for a follow-up appointment.? If you experience unusual or severe pain not relied by your pain medication, excessive bleedingor drainage, persistent nausea and vomiting, excessive swelling or redness, foul odor from incisionsite or fever over 100.6F, you need to call your physician. ? A follow-up phone call by a nurse will be made the day after your procedure.?? If you have stayed with us over night, you will not be receiving a follow-up phone call. ? Nausea and vomiting are a common side effect of prescription pain medication.?? We recommend that pills are not taken on an empty stomach.?? While taking any prescription pain medication you should not drive or drink alcohol. ? Patient Care team information Care Team Personnel Name: Tomi Epstein MD Position: S Resident Member Role: PCP Address: Address: [address] [place] [id number]- Care Team Related Persons Name: KEM JENKINS Address: home [address] [place] [address] Name: YANI JAY Address: home [address] [place] [address]
--- OUTSIDE RECORDS SUMMARY | 2024-01-24 11:11 | XMS_ITS | Continuity of Care Document ---
Author Organization [facility] ter Address [address] [place] [address]- Care Team Providers Care Server Administrator Name Role Phone Tomi Epstein MD Primary Care Physician Encounter [facility] [place] Date(s): 09/29/23 - 09/29/[address] [address] Discharge Disposition: A-D/C Home Attending Physician: Bibiana Sylvester MD Admitting Physician: Bibiana Sylvester MD Referring Physician: Bbiiana Sylvester MD Allergies, Adverse Reactions, Alerts No Known [...] 08/23/23 11:10:00 EST, Route to Pharmacy Electronically, [facility]/pharmacy #[id number], Partial fill upon patient request if the [...] 07/26/23 10:58:00 EST, Route to Pharmacy Electronically, [facility], Partial fillupon patient request if the prescription is for a s... Start Date: 07/26/23 Stop Date: 08/03/23 Status: Ordered PEG-3350 with Electrolytes (Eqv-GoLYTELY) oral powder for reconstitution 240 mL, By Mouth, Every 15 minutes, Split prep method. 1/2 gallon evening prior to colonscopy and 1/2 gallon 6h prior to start of colonoscopy, # 4,000 mL, 0 Refills, Maintenance, 09/27/23 10:54:00 EDT, [facility]/pharmacy #[id number], Colonosopy Date: 09/29/23, 24... Start Date: 09/27/23 Status: Ordered tadalafil 10 mg oral tablet 1 tablet = 10 mg, By Mouth, Daily, 1 hour before sexual activity, # 30 tablet, 3 Refills, Maintenance, 08/06/23 3:36:00 EST, Tablet, [facility]/pharmacy #[id number], Partial fill upon patient [...] cholesterol Confirmed Active Tinea cruris Confirmed Active Procedures Procedure Date Related Diagnosis Body Site Status Colonoscopy 09/29/23 Completed Vital Signs Most recent to oldest [Reference Range]: 1 2 3 Height 178 cm (09/29/23 12:26 PM) Weight 86.5 kg (09/29/23 12:26 PM) Oxygen Saturation [94-100 %] 97 % (09/29/23 1:45 PM) 96 % (09/29/23 1:30 PM) 96 % (09/29/23 12:26 PM) Pulse Rate [55-90 bpm] 86 bpm (09/29/23 1:45 PM) 87 bpm (09/29/23 1:30 PM) 93 bpm *H* (09/29/23 12:26 PM) Body Mass Index [18.5-24.99 kg/m2] 27.3 kg/m2 *H* (09/29/23 12:26 PM) Blood Pressure [90-138/55-84 mm Hg] 137/99mm Hg (09/29/23 1:45 PM) 138/89mm Hg (09/29/23 1:30 PM) 176/102mm Hg *H* (09/29/23 12:26 PM) Respiratory Rate [16-30 br/min] 20 br/min (09/29/23 1:45 PM) 18 br/min (09/29/23 1:30 PM) 22 br/min (09/29/23 12:26 PM) Temperature [96.8-100.4 DegF] 98.6 DegF (09/29/23 12:26 PM) Mode of Delivery (Oxygen) Room air (09/29/23 1:45 PM) Room air (09/29/23 1:30 PM) Room air (09/29/23 12:26 PM) Dry Weight 86.5 kg (09/29/23 12:26 PM) Social History Social History Type Response Smoking Status Never (less than 100 in lifetime) entered on: 04/07/23 Sex Note * Jessica Chahal RN: PERFORM Event Display: Discharge/Transfer Note Hospital Authored Date: [id number] Nursing Discharge Note Entered On: 09/29/2023 14:08 EDT Performed On: 09/29/2023 14:08 EDT by Jessica Chahal RN Nursing Discharge Note 2 Discharge Time : 09/29/2023 14:07 EDT Discharge Level of Care at Discharge : Home/Detention/Foster Care Patient Left Unit Via : Wheelchair Patient Accompanied Off Unit with : Responsible adult DC Instructions Provided & Signed by Pt : Yes Patient Understands D/C Instructions : Yes Patient Instructions Discharge Signed : Yes Did Pt have Specialty Bed or Wound Vac : No Jessica Chahal RN - 09/29/2023 14:08 EDT * Jessica Chahal RN: PERFORM Event Display: Patient Education/Instruction Authored Date: [id number] Surgery Adult Discharge Instructions [address] [address] Name: DILLAN JENKINS : 1975?? Visit: 09/29/2023 12:06?? Current Date: 09/29/2023 13:53 ?? Account: [id number]?? Surgery Discharge Instructions We would like to thank [...] and their families. Surveys are administered by [employer] ?? If further treatment with your primary care physician or another doctor is recommended, it is important for you to keep the appointment. Call your primary care physician or return to the Emergency Department immediately if your condition worsens, fails to improve, or new symptoms develop. If you need to find a doctor, you can call [facility] appbackr Link for a referral at [phone] or toll free at [phone]) or log in to [email or web address].. ?? [facility], in keeping with [facility] guidance, no longer requires face masks [...] a health care adrienne of your choosing. [facility] is a website that allows you to securely view your medical information including your hospital discharge summary, office visit summaries, medications and follow-up visits. You can also request appointments, renew medications, and request access to your medical information using a health care adrienne of your choosing, or just ask a question. You are entitled to know the individuals who participated in your treatment. This information is available within your medical record and will be provided upon your request. You can enroll at [email or web address] or register d uring your next office visit. You have been discharged from [facility], Patient Care Unit: ENDO??. If you have any questions regarding these instructions after you leave, please call us and we will be happy to assist you. [facility] Your Care Team Attending Physician Nga BLANCHARD, Bibiana?? Discharging Providers Nga BLANCHARD, Bibiana Reason for Admission COLON SCREEN, BLEEDING HEMORRHOIDS Primary Care Provider Tete BLANCHARD, Tomi? Advance Directive Health Care Proxy on File No Patient refuses to discuss What to do next Instructions From Your Doctor ?? Orders? 09/29/23 13:50:00 EDT?? You Need to Schedule the Following Appointments Follow Up with??Follow up with primary care provider as needed. Follow Up with??Tomi Epstein When:??In 0 days Discharge Medications DILLAN JENKINS :1975 Visit Date:09/29/2023 Medications: Please continue your medications until treatment is completed or stopped by your provider. You may resume your daily prescription medications. Discuss any questions related to medications with your provider. What How Much When Instructions Next Dose Unchanged Amlodipine (amLODIPine 5 mg oral tablet) 1 tab(s) Oral Daily Unchanged Gabapentin (gabapentin 300 mg oral capsule) PLEASE SEE ATTACHED FOR DETAILED DIRECTIONS ?? Unchanged Oxycodone (oxyCODONE 5 mg oral tablet) 5 Milligram Oral Every 6 hours as needed for Pain , Moderate Unchanged PEG Electrolyte Solution (PEG-3350 with Electrolytes (Eqv-GoLYTELY) oral powder for reconstitution) 240 Milliliter Oral Every 15 minutes Split prep method. 1/ 2 gallon evening prior to colonscopy and 1/ 2 gallon 6h prior to start of colonoscopy ?? Unchanged tadalafil (tadalafil 10 mg oral tablet) 1 tab(s) Oral Daily 1 hour before sexual activity ?? Unchanged Testosterone (Testosterone Cypionate 200 mg/ mL intramuscular solution) INJECT 0.4 MLS SUBCUTANEOUS TWO TIMES A WEEK ?? Tylenol- next dose 8pm Ibuprofen-?? next dose 7pm Allergies (NKA means No Known Allergies) NKA Education Materials Below is the list of Educational Leaflet Providered with your Discharge Instructions. [employer] Patient Education - Hemorrhoids Discharge Instructions?? [employer] Patient Education - Surgery Medical Daystay Surgical Overnight Discharge Instructions?? Valuables and Belongings I fully understand and agree that [facility] accepts no responsibility for all my [...] encouraged to send valuables and belongings home. ? Other Discharge Information ? Pulmonary Rehab Status?? Pulmonary Rehab Discharge Status?? Respiratory Rate: 20 br/min ? Common Emergency Awareness Tips IS [...] are strongly encouraged to quit. Please call [facility] appbackr Link at [phone] or [phone] ([phone]) or log in to [email or web address] for referrals to smoking cessation programs. ?? The National Suicide Prevention Hotline is available 24/01 if you or someone you know needs to find a reason to keep living. By calling 8-587-269-Chapatiz (9978) you'll be connected to a skilled, trained counselor at a crisis center in your area. SURGERY DISCHARGE INSTRUCTIONS SIGNATURE PAGE DILLAN JENKINS Location:[facility] Registration Date and Time:09/29/2023 12:06 EDT Primary Care Physician: Tete BLANCHARD, Tomi, Attending Physician: Nga BLANCHARD, Bibiana, I DILLAN JENKINS, have received the above patient education materials/instructions and have verbalized understanding. If ambulance or transport services are being used I further acknowledge being given a choice of service. ?? If you need to contact me, please call me at this number: . Patient/Vault Clerk Name: Dillan Jenkins Patient/Vault Clerk Signature: Relationship to Patient: self Witness Name/Signature: Date: 09/29/23 * Jessica Chahal RN: PERFORM, SIGN, VERIFY Event Display: Patient Education Handout Authored Date: [id number] * Jessica Chahal RN: PERFORM Event Display: Patient Education Leaflets Authored Date: [id number] Hemorrhoids Discharge Instructions ?? 672 ??Hemorrhoids Discharge Instructions ??You must carefully read the Consumer Information Use and Disclaimer below in order to understand and correctly use this information?? About this topic Hemorrhoids are swollen veins in the rectum. Your rectum is where stool leaves your body. You may be able to see or feel your hemorrhoids outside of your body, but some hemorrhoids are inside of yourrectum and cannot be seen. Hemorrhoids can cause itching, pain, and bleeding. Being constipated or having hard stools can make your hemorrhoids worse.?? What care is needed at home? Ask your doctor what you need to do when you go home. Make sure??you ask questions if you do not understand what the doctor says. This??way you will know what you need to do. ??? Soak your bottomin a few inches of warm water for 10 to 15 minutes??at a time. You can do this 2 to 3 times each day. Do not add soap,??bubble bath, or anything to the water. ??? Use omuy-kii-msfibal medicines to treat your hemorrhoids. These??include ointments and creams to help with pain and swelling. You can??also use a product like witch chema to help dry out the skin in the area. ??? To help with constipation: ??? Use stool softeners when needed. ??? Eat high-fiber foods. These include whole grains, fruits, and??vegetables. ??? Drink plenty of water and other fluids each day. This helps to??keep your stools soft. ??? Set a regular schedule to try and have a bowel movement. Do??not ignore the urge to go to the bathroom. Don???t hold it in. ??? Give yourself plenty of time to have a bowel movement, but do not linger on the toilet either, by sitting and reading for a long time. ??? Do mild exercise each day like taking a walk. ??? Avoid heavy lifting or straining while the hemorrhoid is healing. ?? What follow-up care is needed? If your problem does not get better, other care may be needed. Your doctor may ask you to make visits to the office to check on your progress. Be sure to keep these visits.?? What drugs may be needed? The doctor may order drugs to: ??? Help with pain and swelling ??? Ease itching ??? Soften stools ?? Will physical activity be limited? Working out can help with digestion. It might help keep you from having hard stools. Ask your doctor about the best kind of exercise for you. ?? What problems could happen? You may have very bad bleeding. ??? Sometimes, treatments do not work. Some hemorrhoids are very??large. You might need surgery for either of these. ?? When do I need to call the doctor? You have a lot of bleeding from your rectum. ??? Your bowel movement looks like tar. ??? You are not able to pass stool because of pain from your??hemorrhoids. ??? Your pain gets worse and is nothelped by yvrw-swg-xvczknd??medicines, warm water, or your home care. ??? You have a fever of 100.4??F (38??C) or higher. ?? Teach Back: Helping You Understand The Teach Back Method helps you understand the information we are giving you. After you talk with the staff, tell them in your own words what you learned. This helps to make sure the staff has described each thing clearly. It also helps to explain things that may have been confusing. Before going home, make sure you can do these: ??? I can tell you about my condition. ??? I can tell you what may help ease my pain. ??? I can tell you what I will do if I have blood in my rectum. Where can I learn more?[employer]https://familydoctor.or g/condition/hemorrhoids/National Digestive Disease Information Clearinghousehttps://www.niddk.nih.go v/health-information/digestive-diseases/hemorrhoids/definition-factsLast Reviewed Hwvx8424-90-37Xdqetuei Information Use and Disclaimer:This generalized information is a limited summary of diagnosis,treatment, and/or medication information. It is not meant to be comprehensive and should be used asa tool to help the user understand and/or assess potential diagnostic and treatment options. It does NOT include all information about conditions, treatments, medications, side effects, or risks thatmay apply to a specific patient. It is not intended to be medical advice or a substitute for the medical advice, diagnosis, or treatment of a health care provider based on the health care provider's examination and assessment of a patient???s specific and unique circumstances. Patients must speak with a health care provider for complete information about their health, medical questions, and treatment options, including any risks or benefits regarding use of medications. This information does not endorse any treatments or medications as safe, effective, or approved for treating a specific patient. [employer]. and its affiliates disclaim any warranty or liability relating to this information or the use thereof. The use of this information is governed by the Terms of Use, available at??htt ps://www.[employer].com/en/know/jngniocw-wklxuaqawjdkm-bgxifXtvh Updated 08/26/21? * Jessica Chahal RN: PERFORM Event Display: Patient Education Leaflets Authored Date: [id number] Surgery Medical Daystay Surgical Overnight Discharge Instructions [...] Team Personnel Name: Tomi Epstein MD Position: [facility] Resident Member Role: PCP Address: Address: [address] [place] [address]- Care Team Related Persons Name: ALICE KEM Address: home [address] [place] [address] Name: YANI JAY Address: home [address] [place] [address]
--- OUTSIDE RECORDS SUMMARY | 2024-01-24 11:12 | XMS_ITS | Continuity of Care Document ---
Author Organization [facility] Address [address] [place] [address]- Care Team Providers Care Electrical Manufacturing Engineer Name Role Phone Tete BLANCHARD, Tomi Primary Care Physician Encounter [facility] Date(s): 06/21/23 - 07/21/23 [facility] [address] [place] [address]- [place] Allergies, Adverse Reactions, Alerts No Known [...] DETAILED DIRECTIONS Start Date: 04/22/23 Status: Ordered tadalafil 10 mg oral tablet [...] Team Personnel Name: Tomi Epstein MD Position: [facility] Resident Member Role: PCP Address: Address: [address] [place] [address]- Care Team Related Persons Name: KEM JENKINS Address: home [address] [place] [address] Name: YANI JAY Address: home [address] [place] [address]
--- OUTSIDE RECORDS SUMMARY | 2024-01-24 11:12 | XMS_ITS | Continuity of Care Document ---
Author Organization [facility] Address [address] [place] [address]- Care Team Providers Care Exceptional Needs Teacher Name Role Phone Tomi Epstein MD Primary Care Physician Encounter [facility] [place] Date(s): 06/14/23 - 08/10/23 [facility] [address] [place] [id number] Attending Physician: Not on Staff, Attending MD Referring Physician: Yuan Mckeon MD Allergies, [...] 07/26/23 10:58:00 EST, Route to Pharmacy Electronically, [facility], Partial fillupon patient request if the prescription is for a s... Start Date: 07/26/23 Stop Date: 08/03/23 Status: Ordered tadalafil 10 mg oral tablet 1 tablet = 10 mg, By Mouth, Daily, 1 hour before sexual activity, # 30 tablet, 3 Refills, Maintenance, 08/06/23 3:36:00 EST, Tablet, [facility]/pharmacy #[id number], Partial fill upon patient request if [...] Team Personnel Name: Tomi Epstein MD Position: [facility] Resident Member Role: PCP Address: Address: [address] [place] [address]- Care Team Related Persons Name: EKM JENKINS Address: home [address] [place] [address] Name: YANI JAY Address: home [address] [place] [address]
--- OUTSIDE RECORDS SUMMARY | 2024-01-24 11:12 | XMS_ITS | Continuity of Care Document ---
Author Organization [facility] Address [address] [place] [address]- Care Team Providers Care Head Sugar Reprocess Operator Name Role Phone Tomi Epstein MD Primary Care Physician [phone] Encounter [facility] Date(s): 06/21/23 - 10/27/[address] [address] Attending Physician: Juanita House DO Admitting Physician: Juanita House DO Allergies, Adverse Reactions, Alerts No Known Allergies [...] 08/23/23 11:10:00 EST, Route to Pharmacy Electronically, [facility]/pharmacy #[id number], Partial fill upon patient request if the [...] 07/26/23 10:58:00 EST, Route to Pharmacy Electronically, [facility], Partial fillupon patient [...] mL, 0 Refills, Maintenance, 09/27/23 10:54:00 EDT, [facility]/pharmacy #[id number], Colonosopy Date: 09/29/23, 24... Start Date: 09/27/23 Status: Ordered tadalafil 10 mg oral tablet 1 tablet = 10 mg, By Mouth, Daily, 1 hour before sexual activity, # 30 tablet, 3 Refills, Maintenance, 08/06/23 3:36:00 EST, Tablet, [facility]acy #[id number], Partial fill upon patient request if [...] S Resident Member Role: PCP Address: Address: [address] [place] [address]- Care Team Related Persons Name: KEM JENKINS Address: home [address] [place] [address] Name: YANI JAY Address: home [address] [place] [address]
--- OUTSIDE RECORDS SUMMARY | 2024-01-24 11:12 | XMS_ITS | Continuity of Care Document ---
Author Organization [facility] Address [address] [place] [address]- Care Team Providers Care Advertising Intern Name Role Phone Tete BLANCHARD, Tomi Primary Care Physician En[place] [facility] [place] Date(s): 09/27/23 - 10/27/23 [facility] [address] [place] [address]- [place] Allergies, Adverse Reactions, Alerts No Known [...] 08/23/23 11:10:00 EST, Route to Pharmacy Electronically, [facility]/pharmacy #[id number], Partial fill upon patient request if the [...] 07/26/23 10:58:00 EST, Route to Pharmacy Electronically, [facility], Partial fillupon patient [...] mL, 0 Refills, Maintenance, 09/27/23 10:54:00 EDT, [facility]/pharmacy #[id number], Colonosopy Date: 09/29/23, 24... Start Date: 09/27/23 Status: Ordered tadalafil 10 mg oral tablet 1 tablet = 10 mg, By Mouth, Daily, 1 hour before sexual activity, # 30 tablet, 3 Refills, Maintenance, 08/06/23 3:36:00 EST, Tablet, [facility]/pharmacy #[id number], Partial fill upon patient request [...] S Resident Member Role: PCP Address: Address: [address] [place] [address] Care Team Related Persons Name: KEM JENKINS Address: home [address] [place] [address] Name: YANI JAY Address: home [address] [place] [address]
--- OUTSIDE RECORDS SUMMARY | 2024-01-24 11:12 | XMS_ITS | Continuity of Care Document ---
Author Organization [facility] ter Address [address] [place] [address]- Care Team Providers Care Carpet Floor Layer Apprentice Name Role Phone Not on Staff, PCP Primary Care Physician Unavail able [place] [facility]/06/23 - 04/07/[address] [id number]- Discharge Disposition: A-D/C Walkout Attending Physician: Not on Staff, Attending MD Admitting Physician: Not on Staff, Admitting MD Referring Physician: Not on Staff, Referring MD Allergies, Adverse Reactions, Alerts No Known Allergies Immunizations Given and Recorded Vaccine Date Status Refusal Reason Influenza Virus Vaccine (oldterm) 04/02/20 Recorde d influenza virus vaccine, inactivated 04/01/20 Cesar rded Medications cyclobenzaprine 10 mg oral tablet 10 mg, 1, tablet, By Mouth, 3 times a day, PRN, for 7 days, DO NOT DRIVE OR OPERATE MACHINERY ON THIS MEDICATION IT MAY MAKE YOU DROWSY., # 21 tablet, Refills 0, Tot. Refills 0, Acute 04/14/23 5:41:00 EDT, Spasm, 04/07/23 5:41:00 EDT, Route to Phar... Start Date: 04/07/23 Stop Date: 04/14/23 Status: Ordered Meloxicam Daily, 0 Refills, Maintenance, 03/23/23 12:47:00 EDT, Partial fill upon patient request if the prescription is for a schedule II opioid drug. Start Date: 03/23/23 Status: Ordered Readi-Cat 2 2.1% oral suspension See Instructions, DRINK 1 BOTTLE NIGHT BEFORE TEST AT 8:00 PM DRINK 2ND BOTTLE 1.5 HOURS PRIOR TO XRY, # 2 each, 0 Refills, Maintenance, 03/18/20 15:08:00 EDT, [id number], DRINK 1 BOTTLE NIGHT BEFORE TEST AT [...] Date: 08/18/19 Status: Ordered Problem List Condition Confirmation Course Effective Dates Status Health St atus Informant Adjustment disorder with mixed emotional features Confirmed Active Anxiety Confirmed Active Constipation Confirmed Active Male hypogonadism Confirmed Active Encounter for preventive care Confirmed Active Raised low density lipoprotein cholesterol Confirmed Active Tinea cruris Confirmed Active Vital Signs Most recent to oldest [Reference Range]: 1 2 3 Height 180 cm (04/06/23 10:58 PM) 180 cm (04/06/23 9:54 PM) Oxygen Saturation [94-100 %] 98 % (04/06/23 10:58 PM) 99 % (04/06/23 9:54 PM) 98 % (04/06/23 9:54 PM) Pulse Rate [55-90 bpm] 70 bpm (04/06/23 10:58 PM) 67 bpm (04/06/23 9:54 PM) 76 bpm (04/06/23 9:54 PM) Blood Pressure [90-138/55-84 mm Hg] 168/100mm Hg *H* (04/06/23 10:58 PM) 186/103mm Hg *H* (04/06/23 9:54 PM) Respiratory Rate [16-30 br/min] 20 br/min (04/06/23 10:58 PM) 18 br/min (04/06/23 9:54 PM) Temperature [96.8-100.4 DegF] 98.1 DegF (04/06/23 9:54 PM) Mode of Delivery (Oxygen) Room air (04/06/23 10:58 PM) Room air (04/06/23 9:54 PM) Blood pressure sites Arm, right (04/06/23 10:58 PM) Arm, left (04/06/23 9:54 PM) Temperature Route Oral (04/06/23 9:54 PM) Dry Weight 89 kg (04/06/23 10:58 PM) 89 kg (04/06/23 9:54 PM) Dry Weight Obtained Via Patient/family s tated (04/06/23 9:54 PM) Social History Social History Type Response Smoking Status Never (less than 100 in lifetime) entered on: 04/07/23 Sex EKG study * Event Display: EKG Authored Date: * Event Display: ECG 12-Lead Authored Date: Please click on pdf link to open report * Event Display: ECG 12-Lead Authored Date: Ventricular Rate: 68 BPM Atrial Rate: 68 BPM P-R Interval: 178 ms QRS Duration: 98 ms Q-T Interval: 370 ms QTC Calculation(Bazett): 393 ms P Sanford: 72 degrees R Sanford: 40 degrees T Sanford: 22 degrees Normal sinus rhythm Minimal voltage criteria for LVH, may be normal variant ( Emile product ) Borderline ECG When compared with ECG of 08-JUN-2019 10:47, No significant change was found Confirmed by JAYANT ROSADO MD ([id number]) on 04/07/2023 8:07:29 AM [place]: JAYANT ROSADO MD Patient Care team information Care Team Personnel Name: Not on Staff, PCP Position: S Physician (General Medicine) Member Role: PCP Care Team Related Persons Name: ALICE KEM Address: home [address] [place] [address] Name: YANI JAY Address: home [address] [place] [address]
--- OUTSIDE RECORDS SUMMARY | 2024-01-24 11:12 | XMS_ITS | Continuity of Care Document ---
Author Organization [facility] Address [address] [place] [address]- Care Team Providers Care Wool Classer Name Role Phone Tete BLANCHARD, Tomi Primary Care Physician [place] [facility] [place]14[place] - 10/14/[address] [address] Allergies, Adverse Reactions, Alerts No Known Allergies [...] 11:10:00 EST, Route to Pharmacy Electronically, [facility]/pharmacy #[id number], Partial fill upon patient request if the [...] 07/26/23 10:58:00 EST, Route to Pharmacy Electronically, [facility], Partial fillupon patient request [...] mL, 0 Refills, Maintenance, 09/27/23 10:54:00 EDT, [facility]/pharmacy #[id number], [place] Date: 09/29/23, 24... Start Date: [...] S Resident Member Role: PCP Address: Address: [address] [place] [address]- [place] Care Team Related Persons Name: KEM JENKINS Address: home [address] [place] [address] Name: YANI JAY Address: home [address] [place] [address]
--- OUTSIDE RECORDS SUMMARY | 2024-01-24 11:12 | XMS_ITS | Continuity of Care Document ---
Author Organization [facility] Address [address] [place] [id number]- Care Team Providers Care International Student Counselor Name Role Phone Tete BLANCHARD, Tomi Primary Care Physician Encounter [facility] [place] Date(s): 07/20/23 - 08/19/[address] [id number] Allergies, Adverse Reactions, Alerts No Known [...] 07/26/23 10:58:00 EST, Route to Pharmacy Electronically, [facility], Partial fillupon patient request if the prescription is for a s... Start Date: 07/26/23 Stop Date: 08/03/23 Status: Ordered tadalafil 10 mg oral tablet 1 tablet = 10 mg, By Mouth, Daily, 1 hour before sexual activity, # 30 tablet, 3 Refills, Maintenance, 08/06/23 3:36:00 EST, Tablet, [facility]/pharmacy #[id number], Partial fill upon patient request [...] Team Personnel Name: Tomi Epstein MD Position: [facility] Resident Member Role: PCP Address: Address: [address] [place] [address]- Care Team Related Persons Name: KEM JENKINS Address: [address] [place] [address] Name: YANI JAY Address: home [address] [place] [address]
--- OUTSIDE RECORDS SUMMARY | 2024-01-24 11:12 | XMS_ITS | Continuity of Care Document ---
Author Organization [facility] Address [address] [place] [address]- Care Team Providers Care Soil And Plant Scientist Name Role Phone Tomi Epstein MD Primary Care Physician Encounter [facility] [place] Date(s): 07/11/23 - 08/10/23 [facility] [address] [place] [id number] Attending Physician: AdmShonda cabrales Admitting Physician: Admtr, [id number] Referring Physician: Admtr, [...] 07/26/23 10:58:00 EST, Route to Pharmacy Electronically, [facility], Partial fillupon patient request if the prescription is for a s... Start Date: 07/26/23 Stop Date: 08/03/23 Status: Ordered tadalafil 10 mg oral tablet 1 tablet = 10 mg, By Mouth, Daily, 1 hour before sexual activity, # 30 tablet, 3 Refills, Maintenance, 08/06/23 3:36:00 EST, Tablet, [facility]/pharmacy #[id number], Partial fill upon patient request if [...] Team Personnel Name: Tomi Epstein MD Position: [facility] Resident Member Role: PCP Address: Address: [address] [place] [address]- Care Team Related Persons Name: KEM JENKINS Address: home [address] [place] [address] Name: YANI JAY Address: home [address] [place] [address]
== END 2024-01-24 11:51 | disposition home or self-care (01) ==
LOC: HO.HUSH 11:09
PROVIDERS: Visit Provider Urology
DX: N52.9 Male erectile dysfunction, unspecified (principal); E29.1 Testicular hypofunction
CPT/HCPCS: 99213

== ENCOUNTER → 2024-01-24 11:09 | Outpatient (BNVA) | payer BC, SELFPAY | PROVIDERS: Visit Provider Urology ==

== ENCOUNTER 2024-08-21 14:24 | Outpatient (AMB) | payer BC, SELFPAY ==
--- NOTE | 2024-08-21 14:24 | A.OFFVIS_ITS ---
Intake Visit Reasons: 6m/labs(set)[facility] Intake Note: Patient is Present for Telephone Follow Up Labs Urology Med: Testosterone Antibiotic Allergy:None Blood Thinner: None Babbitt Spinner Required: No Allergies No Known Allergies Allergy (Verified 08/21/24 14:25) HPI Comments Details: Alphonso Fuller is a very pleasant male. He is a patient of Dr Grimes. He is seen for the following urologic conditions - hypogonadism Telephone evaluation 15 minutes spent in discussion and documentation [email or web address] adrienne Video Testosterone low 154, other lab stable Continue with testosterone 0.4 cc subcutaneous 2 times a week Refill provided Six-month follow-up - must be seen in person Hypogonadism: Prescriptions 0.4 cc subcutaneous 2 times a week Injection Day: Tue - Lab Work: Tuesday Initial symptoms include erectile dysfunction No decreased libido Yes change in mood/depression No in muscle size/strength Yes increased fatigue/malaise Yes increased abdominal fat No tender breasts/gynecomastia No hair loss No osteopenia No The onset of symptoms has been gradual, since late 2014 - trial of Clomid January 2016 with T response to 460 - not covered under insurance - trial of hCG - up to 1000u 3x a week - repeat T 169 05/19 - 05/19 - trial of T 50mcg 2x a week with hcg 250u 2x a week the day prior. Erectile status nocturnal erections occur and are comparable to sexual stimulation, erections are adequate for penetration, erections are maintained until ejaculation. Associate conditions include obstructive sleep apnea No CAD No obesity No stress - financial, family, employment No heavy alcohol or illicit drug use No other external testosterone use Laboratory results baseline, December 2015 - testosterone 208, , calculated bioavailable testosterone 122 January 2016 - trial of clomid restart - testosterone 425 calculated bioavailable testosterone 241 May 19 - T 164 , LH 3.04 Aug 2016 T 485 Feb 2017 757 - end, , PSA 1.1 06/19 T 1087 01/18 T 648, 12/20 T 494, PSA 0.9, HCT 50, 06/21 T 899 PSA 0.9 HCT 52, 12/21 T 585 PSA 0.9 HCT 51, 07/24 T 390 PSA 0.8 HCT 50, 02/21 T 566 PSA 0.7, Hct 49, 09/22 624 0.9 50, 06/24 T 902 0.9 52, 06/25 T 465 0.9, 01/24 T466, 07/28 T 152 Current therapy includes injectable exogenous testosterone Diagnosis based on history and laboratory results Primary testicular failure, secondary to, external medications/substances. non responsive to hCG. Therapeutic plan continue current medication 0.40 ml 2x a week Risk, benefits and alternatives to therapy were discussed regarding the use and timing of prescribed medications. Pertinent side effects and interactions for medications were highlighted and adherence emphasized [facility] Medical History Erectile dysfunction Testicular failure Hypogonadism in male Surgical History History of surgery Family History Father No problems noted. Mother No problems noted. Social History Alcohol intake: current Alcohol intake frequency: does not drink Patient Tobacco Use Status: Never used Tobacco Review of Systems Const All systems reviewed & are unremarkable except as noted in HPI and below Reports no additional complaints Resp Reports no additional complaints GI Reports no additional complaints Reports as per HPI Musc Reports no additional complaints Physical Exam Telemedicine evaluation Appropriate responses Regular breathing rate and rhythm HEENT Head: Yes normal to inspection Ears: hearing grossly normal bilaterally Eyes General: appearance normal, both eyes and all related structures Neck Neck: Yes normal visual inspection Chest Chest palpation & inspection: normal inspection of the chest Resp Effort & Inspection: normal respiratory effort and able to speak in complete se ntences Telehealth Telehealth Telehealth Platform: [facility] Location of provider rendering services: practice address Location of patient: address on file Patient Identification confirmed using: Name, : Yes Telehealth method: video Patient verbally consented to treatment: Yes Patient verbally consented to billing insurance company: Yes Patient informed of any privacy concerns related to visit: Yes Minutes spent on Phone/Video with Pt.: 15 Assessment & Plan Assessment & Plan (1) Hypogonadism in male: Code(s): E29.1 - Testicular hypofunction Category: Medical (2) Erectile dysfunction: Code(s): N52.9 - Male erectile dysfunction, unspecified Category: Medical Plan Refill Six-month follow-up lab work office Orders: Orders Prostate Specific Antigen 6 Months E29.1 - Testicular hypofunction Testosterone, Total 6 Months E29.1 - Testicular hypofunction Complete Blood Count no Diff 6 Months E29.1 - Testicular hypofunction Patient Instructions: This note is constructed using voice recognition software. While every effort has been made to ensure accuracy film vault supervisor errors may have been included. Imaging studies, laboratory and physical exam results were discussed and reviewed in detail. No major barriers to patient understanding were identified. An opportunity to ask questions regarding the treatment plan was provided. All questions were answered. The patient expressed understanding and agreement with the above treatment plan. The patient is aware they should contact our office by phone for worsening of their current condition or the appearance of new urologic symptoms. Compliance is encouraged with any medications and followup testing that is ordered. It is a privilege to participate in the urologic care of your patient. If you have any questions or concerns regarding treatment for the above conditions, or other urologic issues, please do not hesitate to contact me. The office telephone contact is [phone]. Sincerely, Dr Daniel Cai MD, NO [facility] - Urology Compassionate Specialist Care for the Genitourinary System Coding Level of Care Code Est Pt Level 3 (16374) Complex EM visit Add On G2211 Diagnoses Hypogonadism in male E29.1 Erectile dysfunction N52.9
== END 2024-08-21 15:14 | disposition home or self-care (01) ==
LOC: HO.HUSH 14:24
PROVIDERS: Visit Provider Urology
DX: E29.1 Testicular hypofunction (principal); N52.9 Male erectile dysfunction, unspecified
CPT/HCPCS: 99213